=== PATIENT | male | born 1945 | race Two or more races ===

== ENCOUNTER 2025-02-05 08:14 | Emergency (ER) | payer OTHER ==
[~2025-02-05] VITALS: Ht 172.7 cm; Wt 102.5 kg
[2025-02-05] MEDS ORDERED: LIPITOR40 M1 PO (08:39)
[2025-02-05] MEDS ORDERED: LEXAPRO20 MG PO (08:40)
[2025-02-05] MEDS ORDERED: OXYBUTYNIN CHLOR5 MG PO (08:41)
[2025-02-05] MEDS ORDERED: CARBIDOPA25 MG PO (08:42)
[2025-02-05] MEDS ORDERED: BUDESONIDE 0.5 MG/2 ML AMPUL.NEB IH STA (09:10)
[2025-02-05] MEDS ORDERED: LEVALBUTEROL HCL 1.25 MG/3 ML SOLUTION IH STA (09:10)
[2025-02-05] MEDS ORDERED: METHYLPREDNISOLONE SOD SUCC 125 MG VIAL IV STA (09:12)
[2025-02-05] MEDS ORDERED: METHYLPREDNISOLONE SOD SUCC 125 MG VIAL ONE (09:22)
[2025-02-05] MEDS ORDERED: WATER FOR INJ.,BACTERIOSTATIC 30 ML VIAL IJ ONE (09:24)
[2025-02-05 09:56] LABS: BASO % 0.6 % (0.1-1.2); EOS # 0.08 (0.04-0.54); HEMATOCRIT 44.4 % (40.1-51.0); LYMPH % 17.3 % (19.3-53.1); MONO # 0.97 (0.24-0.82); NEUT # 5.52 (1.56-6.13); NEUT % 68.5 % (34.0-71.1); PLATELET COUNT 166 K/uL (163-369); RED BLOOD COUNT 5.36 M/uL (4.63-6.08); RED CELL DISTRIBUTION WIDTH 13.4 % (11.6-14.4)
[2025-02-05 10:10] LABS: INFLUENZA A AG POSITIVE (NEGATIVE)
[2025-02-05 10:11] LABS: COVID-19 AG NEGATIVE (NEGATIVE)
[2025-02-05] MEDS ORDERED: BUDESONIDE 0.5 MG/2 ML AMPUL.NEB IH ONE (10:21)
[2025-02-05] MEDS ORDERED: LEVALBUTEROL HCL 1.25 MG/3 ML SOLUTION IH ONE (10:21)
[2025-02-05 10:24] LABS: CALCIUM 8.7 mg/dL (8.5-10.1); CREATININE SERUM 0.91 mg/dL (0.70-1.30); GFR 80.57; POTASSIUM 3.98 mEq/L (3.5-5.1)
[2025-02-05 11:07] LABS: ABG PH 7.403 (7.35-7.45); ABG pCO2 37.9 mmHg (35-45); BASE EXCESS -1.3 mmol/l; BICARBONATE 23.1 mmol/l (23-25); SaO2 92.4 %; Tco2 24.2 mmol/l; allen test SATISFACTORY; mode ROOM AIR; o2 21 %; puncture site RADIAL RIGHT
== END 2025-02-05 11:08 | disposition home or self-care (01) ==
LOC: ER 08:21
PROVIDERS: General Practice
DX: J44.1 Chronic obstructive pulmonary disease with (acute) exacerbation (principal); J10.1 Influenza due to other identified influenza virus with other respiratory manifestations; Z20.822 Contact with and (suspected) exposure to COVID-19